=== PATIENT | male | born 1930 | race Caucasian/White ===

== ENCOUNTER 2017-05-31 18:56 | Emergency (ER) | payer OTHER ==
--- NOTE | 2017-05-31 19:07 | EDPHY ---
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 He comes to the emergency department by EMS after accidentally pulling out his PEG tube today. There has been no change in his condition otherwise. No fevers. No vomiting or aspiration. The PEG tube is been in place for over a year. REVIEW OF SYSTEMS: Constitutional: denies: chills, fever, recent illness, recent injury EENTM: denies: blurred vision, double vision, nose congestion Respiratory: denies: cough, shortness of breath Cardiac: denies: chest pain, irregular heart rate, lightheadedness, palpitations Gastrointestinal/Abdominal: See HPI Genitourinary: denies: dysuria, frequency, hematuria, pain Musculoskeletal: denies: joint pain, muscle pain Skin: denies: lesions, rash, jaundice, bruising Neurological: denies: headache, numbness, paresthesia, tingling, dizziness, weakness Hematologic/Lymphatic: denies: blood clots, easy bleeding, easy bruising Immunologic/allergic: denies: HIV/AIDS, transplant EXAM: GENERAL: Thin, cachectic HEAD: Atraumatic, normocephalic. EYES: Pupils equal round and reactive to light, sclera anicteric, conjunctiva are normal. ENT: nares patent, oropharynx clear without exudates. Slightly dry mucous membranes. NECK: Normal range of motion, supple without lymphadenopathy or JVD. LUNGS: Breath sounds clear to auscultation bilaterally and equal. No wheezes rales or rhonchi. HEART: Regular rate and rhythm without murmurs, rubs or gallops. ABDOMEN: Soft, nontender, normoactive bowel sounds. No guarding, no rebound. No masses appreciated. BACK: No CVA tenderness, no spinal tenderness, step-offs or deformities EXTREMITIES: Patient has decubitus eye on left and right hips. Quite deep stage III or 4. No sign of infection. 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 - Family History Significant Family History: No pertinent family hx - Social History Smoking Status: Never smoked Alcohol Use: None Drug Use: None Constitutional: Initial Vital Signs Temperature (C) 36.7 C 05/31/17 19:16 Heart Rate 75 05/31/17 19:16 Respiratory Rate 16 05/31/17 19:16 Blood Pressure 152/84 H 05/31/17 19:16 O2 Sat (%) 98 05/31/17 19:16 O2 Delivery Mode Room Air Allergies/Adverse Reactions: No Known Allergies Allergy (Verified 05/31/17 19:18) Home Medications: Medication Instructions Recorded Aspirin [Aspirin 81mg (*)] 81 mg TUBE DAILY #0 tab.chew 08/18/16 Medical Decision Making Procedures: Patient's G-tube was replaced using a gum elastic bougie as a guide and gradually dilating over 4 point no up to 5.5 ET tubes. Patient tolerated the procedure well. Family was educated about had a use the G-tube. Will also educate them about wound care. Will also have case management call to arrange home visits for wound care. ED Course/Re-evaluation: Stomach contents aspirated from G-tube. Patient family happy. We will transfer back to the snf. Differential Diagnosis: Partial list of the Differential diagnosis considered include but were not limited to; G-tube displacement, infection, decubitus and although unlikely based on the history and physical exam, I also considered cellulitis, sepsis. I discussed these differential diagnoses and the plan with the patient as well as the usual and expected course. The patient understands that the diagnosis is provisional and that in medicine we are not always correct and that further workup is often warranted. Usual and customary warnings were given. All of the patient's questions were answered. The patient was instructed to return to the emergency department should the symptoms at all worsen or return, otherwise to followup with the physician as we discussed. Departure - Departure Disposition: Home, Routine, Self-Care Clinical Impression: Gastrointestinal tube present Condition: Fair Instructions: How to Use and Care for Your PEG Tube (ED) Referrals: Patient,NotPresent [Primary Care Provider] - As per Instructions
[2017-05-31 19:18] VITALS: TEMP 98.1
[2017-05-31 22:16] VITALS: BP 127/78; PULSE 81; RESP 18; O2SAT 94
== END 2017-05-31 22:16 | disposition home or self-care (01) ==
LOC: EDUNIT#
PROC: 0DH63UZ Insertion of Feeding Device into Stomach, Percutaneous Approach (ICD-10-PCS; principal; 2017-05-31)
DX: Z43.1 Encounter for attention to gastrostomy (principal); Z79.82 Long term (current) use of aspirin; Z85.46 Personal history of malignant neoplasm of prostate; Z86.73 Personal history of transient ischemic attack (TIA), and cerebral infarction without residual deficits

== ENCOUNTER 2017-06-02 11:41 | Emergency (ER) | payer OTHER ==
[2017-06-02 12:14] VITALS: RESP 16
--- NOTE | 2017-06-02 13:49 | EDPHY ---
H & P Time Seen by Provider: 06/02/17 13:45 HPI/ROS: Chief complaint. Pulled out PEG tube HPI. 86-year-old male status post CVA with residual left-sided weakness and partial locked-in syndrome pulled out his PEG tube. He only is fed through his PEG tube. Apparently the PEG tube was pulled out this morning per his daughter. He was seen 2 days ago in the emergency department for the same also after pulling out PEG tube. He also has significant decubitus ulcers and the daughter is taking care of these at home. Been no fever. No vomiting. Otherwise no change in mental status. ROS Constitutional. no fever/chills, no weakness Eyes. no problems with vision ENT. no sore throat, no nasal drainage Cardiovascular. no chest pain Respiratory. no shortness of breath, no cough Abdominal. no abdominal pain, no nausea/vomiting, no diarrhea . no problems urinating MS. no calf pain/swelling, no neck/back pain, no joint pain Skin. no rash Lymph. no swollen glands Neuro. Can not walk or talk Past Medical/Surgical History: CVA, prostate cancer Social History: , nonsmoker, no alcohol Smoking Status: Never smoked Physical Exam: General Appearance: Nonverbal male no distress vital signs stable Eyes: Pupils equal and round no pallor or injection. ENT, Mouth: Mucous membranes are moist. Respiratory: There are no retractions, lungs are clear to auscultation. Cardiovascular: Regular rate and rhythm. Gastrointestinal: Abdomen is soft and there is a tract from the PEG tube that is nonbleeding. Neurological: Left-sided weakness Skin: 2 decubitus ulcers that are quite deep on both hips Musculoskeletal: Neck is supple nontender. Extremities symmetrical, full range of motion. Psychiatric: Nonverbal Constitutional: Initial Vital Signs Temperature (C) 36.7 C 06/02/17 12:08 Heart Rate 74 06/02/17 12:08 Respiratory Rate 16 06/02/17 12:08 Blood Pressure 145/75 H 06/02/17 12:08 O2 Sat (%) 94 06/02/17 12:08 O2 Delivery Mode Room Air Allergies/Adverse Reactions: No Known Allergies Allergy (Unverified 06/02/17 12:08) Home Medications: Medication Instructions Recorded Aspirin [Aspirin 81mg (*)] 81 mg TUBE DAILY #0 tab.chew 09/22/16 Medical Decision Making Procedures: Peg tube replacement--the family brings a 20 [place] PEG tube that had come out and had been placed 2 days ago. The balloon was not inflated any longer. I attempted to replace with a 20 [place] but it would not pass. I serially dilated the tract using initially a bougie and then a 3.0 endotracheal tube followed by 3.5 endotracheal tube followed by 4.0 endotracheal tube. I was unable to pass of 4.5 endotracheal tube which was still smaller than the 20 [place] PEG tube. I did try again to pass the 20 [place] PEG tube but was unsuccessful. We started again with serial dilation as described above and then I was able to successfully place a 16 [place] PEG tube. Balloon is inflated with 5 ml normal saline. The tube was then secured in place. ED Course/Re-evaluation: We had wound care see the patient and they have recommended follow-up and further evaluation. However the family is unwilling to give address or let anybody come into the home. It is emphasized that the decubitus ulcers require specialized and further care. The family expresses understanding but does not agree to any type of home health for home care. We have called Adult protective Services to follow up and check on the family. Multiple times I have recommended follow-up and further evaluation and further help as well as home care. At this point they are refusing. Differential Diagnosis: A tough social situation. Clearly the patient and family need more help but at this point are declining. The PEG tube is replaced without difficulty. Wound care nurse has seen and evaluated and treated decubitus here in the emergency department and has recommended follow-up. Departure - Departure Disposition: Home, Routine, Self-Care Clinical Impression: S/P percutaneous endoscopic gastrostomy (PEG) tube placement Decubitus ulcer Qualifiers: Pressure ulcer location: buttock Pressure ulcer stage: unspecified pressure ulcer stage Laterality: right Qualified Code(s): L89.319 - Pressure ulcer of right buttock, unspecified stage Condition: Fair Instructions: How to Use and Care for Your PEG Tube (ED), How to Prevent Pressure Ulcers (ED) Additional Instructions: We encourage follow-up and further care for the decubitus ulcer including further evaluation by family physician and home health. This is also been recommended to you by the wound care nurse that you saw today. Caution with the PEG tube to prevent it from coming out. The PEG tube is slightly smaller in diameter then previously as I was unable to pass a larger PEG tube. The family physician will help schedule a larger tube to be placed if necessary. Return for fever or worsening decubitus ulcer. Referrals: Patient,NotPresent [Primary Care Provider] - As per Instructions AMRIE SANCHEZ [Non Staff Provider ()] - 2-3 days without fail
[2017-06-02 16:58] VITALS: BP 149/86; PULSE 67; TEMP 97.7; O2SAT 95
== END 2017-06-02 18:18 | disposition home or self-care (01) ==
LOC: EDUNIT#
PROC: 0DH63UZ Insertion of Feeding Device into Stomach, Percutaneous Approach (ICD-10-PCS; principal; 2017-06-02)
DX: L89.319 Pressure ulcer of right buttock, unspecified stage (principal); Z46.59 Encounter for fitting and adjustment of other gastrointestinal appliance and device; Z79.82 Long term (current) use of aspirin; Z85.46 Personal history of malignant neoplasm of prostate; Z86.73 Personal history of transient ischemic attack (TIA), and cerebral infarction without residual deficits